=== PATIENT | male | born 1940 ===

== ENCOUNTER 2019-05-31 14:30 | Emergency (ER) | payer OTHER ==
[~2019-05-31] VITALS: Ht 170.2 cm; Wt 63.0 kg
[2019-05-31] MEDS ORDERED: TOPROL XL25 M1 PO ×2 (15:03→15:04)
[2019-05-31] MEDS ORDERED: ASPIR 8181 MG PO (15:03)
[2019-05-31] MEDS ORDERED: PLAVIX75 MG PO (15:03)
[2019-05-31] MEDS ORDERED: TAMS0.4C PO (15:04)
[2019-05-31] MEDS ORDERED: DIALYVITE 3,001 EACH PO (15:04)
[2019-05-31] MEDS ORDERED: VASOTEC5 MG PO (15:05)
== END 2019-05-31 21:20 | disposition home or self-care (01) ==
LOC: ER 14:30
DX: S00.83XA Contusion of other part of head, initial encounter (principal); S80.02XA Contusion of left knee, initial encounter; S80.01XA Contusion of right knee, initial encounter; S20.211A Contusion of right front wall of thorax, initial encounter; S60.222A Contusion of left hand, initial encounter; S60.221A Contusion of right hand, initial encounter; W18.09XA Striking against other object with subsequent fall, initial encounter; Y93.01 Activity, walking, marching and hiking; Y92.481 Parking lot as the place of occurrence of the external cause; Y99.8 Other external cause status